=== PATIENT | female | born 1990 | race Two or more races ===

== ENCOUNTER 2018-01-25 13:35 | Emergency (ER) | payer SELFPAY ==
[~2018-01-25] VITALS: Ht 162.6 cm; Wt 59.0 kg
--- NOTE | 2018-01-25 14:25 | Emergency Room Report ---
History of Present Illness General Chief Complaint: Earache Source: Patient Present Illness HPI 27-year-old female presents to the emergency department complaining of 6 out of 10 in severity pain to the right ear as well as fullness/congestion in the bilateral ears. Patient reports nasal congestion as well she reports chills denies fevers states that her symptoms have been progressive 2 days. Patient denies recent travel or ill contacts. Denies ear trauma denies Q-tip use. denies blood or drainage from the ear. Allergies: Coded Allergies: No Known Allergies (Unverified , 01/25/18) Patient History Past Medical History: see triage record Past Surgical History: none Pertinent Family History: none Last Menstrual Period: 12/10/2017 Now: No Reviewed Nursing Documentation: PMH: Agreed; PSxH: Agreed Nursing Documentation-PMH Past Medical History: No Stated History Review of Systems All Other Systems: negative except mentioned in HPI Physical Exam Vital Signs Date Time Temp Pulse Resp B/P (MAP) Pulse Ox O2 Delivery O2 Flow Rate FiO2 01/25/18 13:45 97.1 61 14 115/60 100 Room Air 97.2 Sp02 EP Interpretation: reviewed, normal General Appearance: no apparent distress, alert, GCS 15, non-toxic Head: normocephalic, atraumatic Eyes: bilateral eye normal inspection, bilateral eye PERRL ENT: hearing grossly normal, normal voice, nasal congestion, other - right tm is bulging, eryhematous and has a fluid line visible Neck: full range of motion Respiratory: lungs clear, normal breath sounds, speaking full sentences Gastrointestinal: normal bowel sounds, non tender, soft Rectal: deferred Genitourinary: normal inspection Musculoskeletal: back normal, gait/station normal, normal range of motion, non- tender Neurologic: alert, oriented x3, responsive, motor strength/tone normal, sensory intact, speech normal, grossly normal Psychiatric: judgement/insight normal Skin: normal color, no rash, warm/dry, well hydrated Lymphatic: no adenopathy Medical Decision Making PA Attestation Dr. Samson is my supervising Physician whom patient management has been discussed with. Diagnostic Impression: Primary Impression: Otitis media Qualified Codes: H66.91 - Otitis media, unspecified, right ear ER Course 27-year-old female presents to the emergency department complaining of 6 out of 10 in severity pain to the right ear as well as fullness/congestion in the bilateral ears. Patient reports nasal congestion as well she reports chills denies fevers states that her symptoms have been progressive 2 days. Patient denies recent travel or ill contacts. Denies ear trauma denies Q-tip use. denies blood or drainage from the ear. Ddx considered but are not limited to OM, OE, mastoiditis, TM perforation, FB Vital signs: are WNL, pt. is afebrile H&PE are most consistent with otitis media ORDERS: none required at this time, the diagnosis is clinical ED INTERVENTIONS: None required at this time. DISCHARGE: At this time pt. is stable for d/c to home. With PO ABX. Will provide printed patient care instructions, and any necessary prescriptions. Care plan and follow up instructions have been discussed with the patient prior to discharge. RX: Augmentin Suspension x 10 days Last Vital Signs Date Time Temp Pulse Resp B/P (MAP) Pulse Ox O2 Delivery O2 Flow Rate FiO2 01/25/18 13:45 97.1 61 14 115/60 100 Room Air 97.2 Disposition: HOME, SELF-CARE Condition: Stable Scripts Acetaminophen* (TYLENOL EXTRA STRENGTH*) 500 Mg Tablet 500 MG ORAL Q6H PRN for Mild Pain/Temp > 100.5, #20 TAB 0 Refills Prov: Daja Stallworth 01/25/18 Amoxicillin/Potassium Clav 875-125* (AUGMENTIN 875-125 TABLET*) 1 Each Tablet 1 TAB ORAL TWICE A DAY for 10 Days, #20 TAB Prov: Daja Stallworth 01/25/18 Patient Instructions: Otitis Media, Adult, [id number] Additional Instructions: Take medications as directed. Follow up with a Primary Care Provider in 3-5 days, even if your symptoms have resolved. --Please review list of primary care clinics, if you do not already have a primary care provider Return sooner to ED if new symptoms occur, or current symptoms become worse. - Please note that this Emergency Department Report was dictated using [employer] technology software, occasionally this can lead to erroneous entry secondary to interpretation by the dictation equipment. Daja Stallworth Jan 25, 2018 14:25
[2018-01-25] MEDS ORDERED: AUGMENTIN 875-1 EAC1 ORAL (14:30)
[2018-01-25] MEDS ORDERED: TYLENOL EXTRA500 MG ORAL (14:30)
[2018-01-25 14:45] VITALS: BP_SYST 115; BP_SYST 123; BP_DIAS 60; BP_DIAS 77
== END 2018-01-25 17:24 | disposition home or self-care (01) ==
LOC: EMR 14:49
DX: H66.91 Otitis media, unspecified, right ear (principal)
CPT/HCPCS: 99283